=== PATIENT | female | born 1980 | race Caucasian/White ===

== ENCOUNTER 2021-03-25 22:37 | Emergency (ER) | payer OTHER ==
[~2021-03-25] VITALS: Ht 167.6 cm; Wt 61.2 kg
[2021-03-25] MEDS ORDERED: diphenhydrAMINE HCL 50 MG/ML VIAL ONE (23:20)
[2021-03-25] MEDS ORDERED: FAMOTIDINE (20 MG) 20 MG TABLET ONE (23:20)
[2021-03-25] MEDS ORDERED: DEXAMETHASONE SOD PHOSPHATE 10 MG/ML VIAL ONE (23:20)
[2021-03-25] MEDS ORDERED: diphenhydrAMINE HCL 50 MG/ML VIAL IM ONE (23:30)
[2021-03-25] MEDS ORDERED: DEXAMETHASONE SOD PHOSPHATE 10 MG/ML VIAL IM ONE (23:30)
[2021-03-25] MEDS ORDERED: FAMOTIDINE (20 MG) 20 MG TABLET PO ONE (23:30)
--- NOTE | 2021-03-25 23:36 | NUR ---
COVID SWABS RAPID AND PCR COLLECTED AND SENT TO THE LAB.
[2021-03-26] MEDS ORDERED: PRED50TA PO (00:20)
--- NOTE | 2021-03-26 00:35 | NUR ---
Patient discharged to home in stable condition. Written and verbal after care instructions given. Patient verbalizes understanding of instruction.
--- NOTE | 2021-03-26 00:35 | NUR ---
PATIENT'S IS DRIVING HER HOME.
[2021-03-26 00:36] VITALS: BP 122/76
== END 2021-03-26 00:36 | disposition home or self-care (01) ==
LOC: ER 22:42 → EDSEX 22:42 → ER 03-26 00:36
DX: U07.1 COVID-19 (principal); T78.40XA Allergy, unspecified, initial encounter; X58.XXXA Exposure to other specified factors, initial encounter
CPT/HCPCS: 87426; 96372 ×2; 99284; C9803; J1100; J1200; U0003

== ENCOUNTER 2022-09-15 10:15 | Emergency (ER) | payer OTHER ==
[~2022-09-15] VITALS: Ht 162.6 cm; Wt 56.7 kg
[~2022-09-15 10:15] MED LIST: PRED50TA PO
--- NOTE | 2022-09-15 10:15 | NUR ---
Jaspal mortensen in [facility] - 09/15/22 at 1116 by ARABELLA UA SENT TO LAB
--- NOTE | 2022-09-15 10:15 | NUR ---
UA SENT TO LAB
--- NOTE | 2022-09-15 10:20 | NUR ---
RECEIVED PT 41 YRS FEMALE CAME FROM HOME [facility]OM[facility] BY [place] C/O ABDOMINAL PAIN FOR 2 DAYS 07/11 ON AND OFF CREAMPING PAIN
[2022-09-15] MEDS ORDERED: IV NS 0.9% 1,000 ML BAG IV ONE (10:30)
--- NOTE | 2022-09-15 10:35 | NUR ---
INSERTED ANGO CATHETYER G 20 ON RT AC BLOOD DROW AND SENT TO LAB
[2022-09-15] MEDS ORDERED: MORPHINE SULFATE INJ 4 MG/ML DISP.SYRIN ONE (10:51)
[2022-09-15] MEDS ORDERED: ONDANSETRON HCL/PF 4 MG/2 ML VIAL ONE (10:51)
[2022-09-15] MEDS ORDERED: ONDANSETRON HCL/PF 4 MG/2 ML VIAL IV ONE (11:00)
[2022-09-15] MEDS ORDERED: MORPHINE SULFATE INJ 2 MG/ML DISP.SYRIN IV ONE (11:00)
[2022-09-15 11:01] LABS: BASOPHILS % (AUTO) 0.3 % (0.0-2.0); HEMATOCRIT 36 % (33-45); HEMOGLOBIN 11.8 g/dL (11.5-14.8); LYMPHOCYTES # (AUTO) 1.2 K/uL (0.8-4.8); LYMPHOCYTES % (AUTO) 10.8 % (20.0-44.0); MEAN CORPUSCULAR HGB CONC 33 g/dl (31.0-36.0); MEAN CORPUSCULAR VOLUME 86 fL (82-100); MONOCYTES # (AUTO) 0.8 K/uL (0.1-1.30); MONOCYTES % (AUTO) 6.9 % (2.0-12.0); NEUTROPHILS # (AUTO) 9.4 K/uL (1.8-8.9); PLATELET COUNT (AUTO) 352 K/uL (150-450); RED BLOOD CELL COUNT(AUTO) 4.18 MIL/uL (4.0-5.2); WHITE BLOOD COUNT (AUTO) 11.5 K/uL (4.3-11.0)
[2022-09-15 11:06] LABS: BILIRUBIN,URINE 1+ (NEGATIVE); COLOR,URINE DARK YELLOW (YELLOW); LEUKOCYTE ESTERASE ,URINE NEGATIVE (NEGATIVE); NITRITE, URINE NEGATIVE (NEGATIVE); PH,URINE 5.5 (5.0-8.0); PROTEIN,URINE NEGATIVE (NEGATIVE); UGLUCOSE NEGATIVE (NEGATIVE); UROBILINOGEN,URINE 0.2 EU/dL (0.2)
[2022-09-15 11:09] LABS: BACTERIA,URINE Rare /HPF (None Seen); MUCUS,URINE Many /LPF (None Seen); RBC,URINE 0-2 /HPF (0-2); SQUAMOUS EPITHELIAL CELL,UR Many /HPF (None Seen); WBC,URINE 0-2 /HPF (0-3)
--- NOTE | 2022-09-15 11:17 | NUR ---
ABDOMINAL US DONE AT BED SIDE
--- NOTE | 2022-09-15 11:20 | NUR ---
US PELIC DONE AT BED SIDE
[2022-09-15 11:23] LABS: ALBUMIN 3.4 g/dL (3.4-5.0); BILIRUBIN,DIRECT 0.2 mg/dL (0.0-0.2); BILIRUBIN,TOTAL 0.6 mg/dL (0.2-1.0); CALCIUM, SERUM 8.6 mg/dL (8.5-10.1); POTASSIUM 4.1 mmol/L (3.5-5.1)
[2022-09-15] MEDS ORDERED: IBUP-1955 PO (12:49)
--- NOTE | 2022-09-15 13:00 | NUR ---
DR. WATERS AT BED SIDE SPOOK PT ABOUT LAB RESULT
--- NOTE | 2022-09-15 13:05 | NUR ---
IV removed. Catheter intact and site benign. Pressure and 4x4 applied to site. No bleeding noted.
--- NOTE | 2022-09-15 13:10 | NUR ---
Patient discharged to home in stable condition. Written and verbal after care instructions given. Patient verbalizes understanding of instruction.
[2022-09-15 13:37] VITALS: BP 107/57
== END 2022-09-15 13:37 | disposition home or self-care (01) ==
LOC: ER 10:19
DX: D25.9 Leiomyoma of uterus, unspecified (principal); R10.30 Lower abdominal pain, unspecified
CPT/HCPCS: 99285; 96374; 76856; 96361; 96375; 85025; 80048; 83690; 80076; 84703; 81001; 36415; J2270; J2405; J7030